=== PATIENT | male | born 1990 | race Caucasian/White ===

== ENCOUNTER 2021-09-08 15:16 | Outpatient (CLI) | payer OTHER ==
[2021-09-08 16:04] VITALS: BP 132/72
--- NOTE | 2021-09-08 16:04 | SLEEP CARE CONSULTATION ---
Information from patient questionnaire entered by Lacy Castellon MA. I have reviewed and concur with the information entered by Lacy Castellon MA. This document represents the service I personally performed and the decisions made by me, Rhea Matos ARNP. History of Present Illness Service Date and Time: 09/08/2021 1516 Reason for Visit: New patient Chief Complaint: reports: Insomnia, Unrefreshed sleep, Snoring, Fatigue, Frequent awakenings at night Date of Onset: 5 plus years Usual bedtime: 2100 Time it takes to fall asleep: 30 minutes Snores at night: Yes Observed to quit breathing while asleep: Yes Sleeps alone due to snoring: No Number of times waking at night: 3-4 Reasons for waking at night: reports: Choking (once), Gasping for air (one time), Other (unknown reasons) Toss, Turn, or Twitch while sleeping: Yes Recalls having dreams: Yes Usually gets out of bed at: 0630 Feels refreshed in the morning: No Morning headache: No Sleepy or fatigued during the day: Yes Ever fallen asleep while driving: No Takes day naps: No Dreams during day naps: No Prior sleep studies: No Additional HPI information: I had the pleasure of seeing EDDY MONTESINOS today regarding the possibility of him having a sleep disorder. His current complaints are fatigue, frequent night awakenings, insomnia, snoring and unrefreshed sleep. He states he has been having trouble sleeping for a long time. He can get to sleep in about 20 minutes but he will wake up 2-4 times a night. He will sometimes have difficulty falling back to sleep. He snores and wears some nasal strips which his tells him they do reduce his snoring. He states in the last 2 weeks he woke up choking/gasping for air once, this has not happened before. He is tired all the time and does not wake up feeling rested. He does take 5 mg OTC Melatonin nightly to help with sleep. - Parasomnia Symptoms Ever been unable to move upon waking from sleep: No Walks in sleep: No Talks in sleep: No Ever acted out dreams in sleep: No Ever felt weak in the knees when startled or emotional: No Bothered by creepy, crawly, restless sensations in legs: No Problems with memory or concentration: No Subjective Initial [place] Sleepiness Scale score: 2 (2020) Social History The patient's occupation is a RN. Patient is and lives in [place]. Have you smoked in the past 12 months: No Alcohol use: Yes Alcohol amount and frequency: 2-3, 1-2x a week Caffeine use: Yes Caffeine amount and frequency: 6-8 cups of coffee daily Family History Family history of sleep disordered breathing: No Allergies and Home Medications Drug allergies reviewed: Yes (NKDA) Home medication list reviewed: Yes Allergy and home medication list: Multivitamin D3 125 mcg Loratidine 10 mg prn Melatonin 5 mg at HS Review of Systems Weight gain over past 5 years: 70 Cardiovascular: denies: high blood pressure (sometimes has white coat HTN) Gastrointestinal: denies: heartburn Neurological: denies: headaches Psychiatric: denies: Attention Deficit Hyperactivity, anxiety, depression, mood disorder Ear/Nose/Throat: denies: injury to nose, tonsillectomy Endocrine: denies: thyroid disease Immunologic: reports: allergies to food or environment (seasonal ) Physical Exam Vital signs obtained and entered by: ALIRIO Sanches Blood Pressure: 132/72 (left) Cuff size: wrist Heart Rate: 70 O2 Saturation: 97 (with mask) Height: 5 ft 8 in Weight: 290 lb (with boots) Body Mass Index: 44.1 BMI Classification: Morbidly Obese Neck circumference: 17 (inches) Mouth and throat: narrow oropharynx Soft palate: long Hard palate: normal Uvula: normal Uvula visualization: 50% Mallampati Class II Tongue: normal in size Tonsils: 1+ Neck: normal w/o lymphadenopathy or thyromegaly Heart: regular rate and rhythm Lungs: clear bilaterally Impression and Plan 1. Suspected Obstructive Sleep Apnea-Hypopnea Syndrome, as suggested by a history of loud and irregular snoring, observed cessation of breath while asleep, gasping or choking in sleep, frequent awakening during the night, unrefreshed sleep, and excessive daytime sleepiness. Narrow oropharynx and obesity are common predisposing factors for obstructive sleep apnea-hypopnea syndrome. I recommend proceeding to polysomnography to confirm the diagnosis and to assess severity. If the patient has significant sleep disordered breathing, a manual CPAP titration study will also be performed to find the optimal treatment pressure. I informed the patient of what the sleep studies involve and after some discussion, obtained agreement to proceed. The pathophysiology of obstructive sleep apnea-hypopnea syndrome was discussed with the patient and health risks of cardiovascular and cerebrovascular disease if not treated. AASM brochure for obstructive sleep apnea-hypopnea syndrome given and reviewed. Risks of drowsy driving discussed in detail and patient advised to avoid long distance driving and to pull worker at the first sign of drowsiness. Patient agreed to plan. * Schedule polysomnography +- manual CPAP titration study and return in 1-2 weeks after the study to discuss result and initiate therapy. * Avoid long distance driving or driving when feeling sleepy. * Avoid alcohol, sedative and muscle relaxant around bedtime. * Attempt to lose weight. * Review instructions provided by trained office staff on how to prepare for the sleep study. * Return for follow-up after sleep study completed. Counseling Topics: Weight loss health impact Visit Type: In Office Time Spent with Patient (minutes): 30 Provider Statement: I spent 100% of the Face to Face Visit with the patient with greater than 50% spent counseling the patient and coordination of care.
== END 2021-09-08 15:17 | disposition home or self-care (01) ==
LOC: SC 15:16
PROVIDERS: ATTEND Nurse Practitioner Family
DX: R06.83 Snoring (principal); R06.81 Apnea, not elsewhere classified; G47.8 Other sleep disorders; G47.10 Hypersomnia, unspecified; E66.01 Morbid (severe) obesity due to excess calories; Z68.41 Body mass index [BMI] 40.0-44.9, adult
CPT/HCPCS: 99203; 99212

== ENCOUNTER 2021-11-28 19:44 | Outpatient (CLI) | payer OTHER | END 2021-11-28 19:45 | disposition home or self-care (01) | LOC: SC 19:44 | PROVIDERS: ATTEND Nurse Practitioner Family | DX: G47.33 Obstructive sleep apnea (adult) (pediatric) (principal) | CPT/HCPCS: 95810 ==

== ENCOUNTER 2021-12-19 14:56 | Outpatient (CLI) | payer OTHER ==
--- NOTE | 2021-12-19 15:16 | SLEEP CARE CONSULTATION ---
Information from patient questionnaire entered by Lacy Castellon MA. I have reviewed and concur with the information entered by Lacy Castellon MA. This document represents the service I personally performed and the decisions made by , Rhea Matos ARNP. History of Present Illness Service Date and Time: 12/19/2021 1500 Initial [place] Sleepiness Scale score: 2 (2020) Current [place] Sleepiness Scale score: 2 Additional HPI information: EDDY MONTESINOS returns via video telehealth visit for follow up and results of the recently performed polysomnography. I explained the pathophysiology behind obstructive sleep apnea. We then spent quite a bit of time discussing different treatment options. For mild obstructive sleep apnea, surgery and oral appliance are alternatives to nasal CPAP therapy but in moderate or severe cases, nasal CPAP is the most effective and reliable treatment. Because apnea is primarily in supine position, then positional management therapy could be effective. Methods discussed such as positioning with pillows to prevent supine sleep. I reviewed the impact of weight changes on sleep apnea and strongly recommended losing weight. After some discussion, the patient opted to go with the nasal CPAP therapy. Nasal autoCPAP set at 4-15 cmH20 will be ordered with rationale explained. A manual titration study will be ordered if unable to find optimal pressure with office adjustments. I explained how CPAP machine works and what to expect when using the machine. Using CPAP every night in order to get used to it was emphasized. Patient advised to put CPAP mask on before getting into bed so as not to fall asleep without CPAP. To assist acclimation to CPAP use, it could also be used for a short time during day while reading or watching TV. The patient was instructed to call the CPAP supplier to discuss any mechanical problem that may occur. If the mask given is uncomfortable or is difficult to keep on through the night even with adjustment, contact the CPAP supplier as many will replace with another mask style if notified before 30 days. If snoring or perceives is not getting enough air or too much air from the machine, notify this office. Patient counseled not drink alcohol less than 4 hours before bedtime as it can increase snoring and apnea. Patient was cautioned about risks of drowsy driving until sleepiness symptoms resolve. Sleep Study - Results Type of Sleep Study: Polysomnography (F/U POLY) Prior sleep studies: No Polysomnography/Home Sleep Study results: IMPRESSION: The quality of the study is good. The patient had slightly reduced sleep efficiency due to several awakenings during the night.. The sleep architecture was abnormal for sleep fra gmentation and reduced amount of time spent in REM and slow wave sleep (N3). Respiratory monitoring showed moderate obstructive sleep apneahypopnea (AHI = 20.8) associated with frequent arousals, oxyhemoglobin desaturation and mild hypoxia (wily oxygen saturation of 84%). The respiratory events occurred almost exclusively during supine sleep (supine AHI = 27.4; non-supine = 4.48). Snore was moderate to loud in intensity. There was no significant periodic leg movement of sleep. Cardiac rhythm was normal sinus rhythm without significant arrhythmia. No abnormal behavior (parasomnia) observed during the night. Allergies and Home Medications Home medication list reviewed: Yes (no changes) Review of Systems Review of systems same as previous: Yes (no changes) Weight loss over past 5 years: patient states he has been losing weight, about 25 lbs so far Physical Exam Vital signs obtained and entered by: Telehealth visit Height: 5 ft 8 in Impression and Plan 1. Obstructive Sleep Apnea-Hypopnea Syndrome, moderate, with lowest oxygen saturation of 84%. Obviously this is the cause of the patients symptoms of unrefreshed sleep, and excessive daytime sleepiness. Positive pressure therapy could benefit his overall health and reduce risks for cardiovascular and cerebrovascular adverse events. As mentioned above, the patient will be started on nasal autoCPAP therapy with pressure set at 4-15 cmH2O. Compliance guidelines also reviewed. A copy of compliance guidelines will be given for reference at check out. Because the apnea is more severe supine, I instructed to avoid sleeping supine using pillow positioning until able to start CPAP use. * Nasal auto CPAP therapy, pressure at 4-15 cm H2O. * Attempt to lose weight. * Avoid alcohol consumption near bedtime. * Avoid supine sleep until using CPAP. * The patient is again cautioned about driving until sleepiness completely resolves. * Return one month after CPAP obtained. I will assess response to therapy and compliance at that time. Counseling Topics: Weight loss health impact Visit Type: Telehealth Video Video Type: VSee Patient Location: Home Location of Provider: Office Patient agrees and consents to this telehealth visit type: Yes Patient agrees to have their insurance billed: Yes Time Spent with Patient (minutes): 22 Provider Statement: I spent 100% of the Telehealth Video Call with the patient with greater than 50% spent counseling the patient and coordination of care.
== END 2021-12-19 14:57 | disposition home or self-care (01) ==
LOC: SC 14:56
PROVIDERS: ATTEND Nurse Practitioner Family
DX: G47.33 Obstructive sleep apnea (adult) (pediatric) (principal)

== ENCOUNTER 2022-05-02 09:42 | Outpatient (CLI) | payer OTHER ==
[2022-05-02 09:02] VITALS: BP 121/75
--- NOTE | 2022-05-02 09:02 | SLEEP CARE CONSULTATION ---
Information from patient questionnaire entered by Lacy Castellon MA. I have reviewed and concur with the information entered by Lacy Castellon MA. This document represents the service I personally performed and the decisions made by , Rhea Matos ARNP. History of Present Illness Service Date and Time: 05/02/2022 0840 Previous diagnosis: Moderate, Obstructive Sleep Apnea-Hypopnea Syndrome AHI: 20.8 (in 2021) Reason for follow up: first compliance (NEHEMIAH ABBOTT 03/22/2022, ) Equipment type: CPAP Equipment obtained from: Other ([facility]; got initial supplies) Mask style: Full face Mask brand: Respironics ([employer]) Backup mask available: No (will keep old mask when replaced) Last cushion change: 1 month Prior sleep studies: No Type of Sleep Study: Polysomnography (F/U POLY) HPI additional information: EDDY MONTESINOS was diagnosed to have moderate, AHI 20.8, obstructive sleep apnea-hypopnea syndrome and returns via video telehealth visit today for CPAP therapy first compliance follow-up. Sleep Study - Results Type of Sleep Study: Polysomnography (F/U POLY) Prior sleep studies: No CPAP Compliance Data - Data Reviewed with Patient Average duration of nightly device use: 5 HOURS 37 MINUTES Compliance rate %: 95 (03/22/2022-04/30/2022) Current pressure setting (cmH2O): 4-15 (median 5.8, avg 10.5, max 11.8) Average residual AHI: 0.6 Central apnea: .0 Obstructive apnea: .5 Hypopnea: .0 Average large leak: .0 Subjective Patient concerns: reports: dry mouth, nose, throat (occasional, if forgets to put water in chamber), other (feel needs more air when puts mask on at night onset). denies: aerophagia, mask discomfort, air blowing in eyes, mask leak noise, condensation in mask/hose, nasal congestion, epistaxis Observed to snore while using device: No Current pressure setting perceived as: comfortable On therapy, patient: reports: other (feels good night of sleep about once a week). denies: drowsiness while driving Initial [place] Sleepiness Scale score: 2 (2020) Current [place] Sleepiness Scale score: 1 Allergies and Home Medications Home medication list reviewed: Yes (Flonase for allergies) Review of Systems Review of systems same as previous: Yes (no changes) Physical Exam Vital signs obtained and entered by: ALIRIO PARRA Blood Pressure: 121/75 (per pt report) Height: 5 ft 8 in Weight: 275 lb (per pt report) Body Mass Index: 41.8 BMI Classification: Morbidly Obese Impression and Plan 1. Obstructive Sleep Apnea-Hypopnea Syndrome, moderate, with good treatment compliance and good apnea control. On CPAP therapy, the patient has better sleep quality and is more rested overall. Patient feels that when he puts the mask on initially he cannot get enough air. I will increase the start up ramp pressure to 6 cmH2O to help with air hunger at night onset. The patients pressure will be changed to autoCPAP 8-12 cmH20 to reflect pressure being used. Patient advised to contact me if pressure change is uncomfortable so that it can be adjusted. Goals for apnea control discussed. Patient's apnea severity and rationale for treatment to reduce apnea, improve sleep quality and reduce cardiovascular and cerebrovascular events was reviewed. [place]. I encouraged him to establish with a sleep provider in the area for his next follow-up in 2 to 3 months. * Change auto CPAP pressure to 8-12 cmH2O * Notify me if snoring with mask or feeling that the pressure is too much or too little * Call this office if any problems using CPAP * Follow up in 2-3 months with new sleep provider, or sooner if concerns arise Counseling Topics: Spare mask Visit Type: Telehealth Video Video Type: Doximity Patient Location: Home Location of Provider: Office Patient agrees and consents to this telehealth visit type: Yes Patient agrees to have their insurance billed: Yes Time Spent with Patient (minutes): 21 Provider Statement: I spent 100% of the Telehealth Video Call with the patient with greater than 50% spent counseling the patient and coordination of care.
== END 2022-05-02 09:43 | disposition home or self-care (01) ==
LOC: SC 09:42
PROVIDERS: ATTEND Nurse Practitioner Family
DX: G47.33 Obstructive sleep apnea (adult) (pediatric) (principal); E66.01 Morbid (severe) obesity due to excess calories; Z68.41 Body mass index [BMI] 40.0-44.9, adult